=== PATIENT | female | born 1995 | race Caucasian/White ===

== ENCOUNTER 2017-11-08 14:04 | Outpatient (CLI) | payer OTHER ==
[2017-11-08] MEDS: LACTATED RINGER'S 1,000 ML IV (17:45)
== END 2017-11-08 21:50 | disposition home or self-care (01) ==
LOC: OBT 14:04 → L-D 14:04 → OBT 21:50
DX: O41.03X0 Oligohydramnios, third trimester, not applicable or unspecified (principal); Z3A.35 35 weeks gestation of pregnancy
CPT/HCPCS: 76818

== ENCOUNTER 2017-11-11 09:59 | Outpatient (CLI) | payer OTHER | END 2017-11-11 12:03 | disposition home or self-care (01) | LOC: OBT 09:59 → L-D 09:59 → OBT 12:03 | DX: O41.93X0 Disorder of amniotic fluid and membranes, unspecified, third trimester, not applicable or unspecified (principal); Z3A.36 36 weeks gestation of pregnancy | CPT/HCPCS: 76818 ==

== ENCOUNTER 2017-11-14 12:50 | Outpatient (CLI) | payer OTHER | END 2017-11-14 18:10 | disposition home or self-care (01) | LOC: OBT 12:50 → L-D 12:50 → OBT 18:10 | DX: O36.8330 Maternal care for abnormalities of the fetal heart rate or rhythm, third trimester, not applicable or unspecified (principal); Z3A.36 36 weeks gestation of pregnancy | CPT/HCPCS: 76818 ==

== ENCOUNTER 2017-11-18 17:57 | Outpatient (CLI) | payer OTHER ==
[2017-11-18] MEDS ORDERED: LACTATED RINGER'S 500 ML IV (19:43)
[2017-11-18] MEDS: LACTATED RINGER'S 1,000 ML IV (20:14)
[2017-11-18 20:45] LABS: ADD UMIC YES; UR ASCORBIC ACID NEGATIVE (NEGATIVE); UR BACTERIA FEW /HPF (NONE SEEN); UR BILIRUBIN (Dip) NEGATIVE (NEGATIVE); UR BLOOD (Dip) 3+ mg/dL (NEGATIVE); UR CLARITY CLOUDY (CLEAR); UR COLOR YELLOW (YELLOW); UR GLUCOSE (Dip) NEGATIVE (NEGATIVE); UR KETONES (Dip) NEGATIVE (NEGATIVE); UR LEUKOCYTE ESTERASE (Dip) TRACE Leu/ul (NEGATIVE); UR MUCUS FEW /HPF (NONE SEEN); UR NITRITE (Dip) NEGATIVE (NEGATIVE); UR RBC 1 /HPF (0-5); UR SPECIFIC GRAVITY (Dip) 1.005 (1.003-1.030); UR SQUAMOUS EPITHELIAL CELL MODERATE /HPF (FEW); UR TOTAL PROTEIN (Dip) NEGATIVE (NEGATIVE); UR UROBILINOGEN (Dip) NEGATIVE (NEGATIVE); UR WBC 3 /HPF (0-5)
== END 2017-11-18 23:11 | disposition home or self-care (01) ==
LOC: OBT 17:57 → L-D 17:59 → OBT 23:11
DX: O26.853 Spotting complicating pregnancy, third trimester (principal); O47.1 False labor at or after 37 completed weeks of gestation; Z3A.37 37 weeks gestation of pregnancy
CPT/HCPCS: 76815; 76818; 81001; 87086

== ENCOUNTER 2017-12-02 04:55 | Inpatient (IN) | payer OTHER ==
[2017-12-02] MEDS ORDERED: MISOPROSTOL 200 MCG TAB PR ×2 (05:30→13:30)
[2017-12-02] MEDS ORDERED: CARBOPROST 250 MCG INJ IM ×2 (05:30→13:30)
[2017-12-02] MEDS ORDERED: OXYTOCIN 30 UNITS/LR 500 ML IV ×3 (05:30→13:30)
[2017-12-02] MEDS ORDERED: METHYLERGONOVINE 0.2 MG INJ IM ×2 (05:30→13:30)
[2017-12-02] MEDS ORDERED: CEFAZOLIN 2 GM/50 ML (PMX) 50 ML IV (05:30)
[2017-12-02] MEDS: LACTATED RINGER'S 1,000 ML IV ×2 (05:39→07:55)
[2017-12-02 05:51] LABS: ADD MAN DIFF? NO
[2017-12-02 05:58] LABS: BASOPHILS % 0.4 % (0.0-2.0); EOSINOPHILS # 0.1 10^3/ul (0.0-0.5); EOSINOPHILS % 0.9 % (0.0-7.0); HEMATOCRIT 36.9 % (37.0-47.0); HEMOGLOBIN 12.7 g/dl (12.0-16.0); LYMPHOCYTES # 3.2 10^3/ul (0.8-2.9); LYMPHOCYTES % 30.2 % (15.0-51.0); MEAN CORPUSCULAR HEMOGLOBIN 31.1 pg (29.0-33.0); MEAN CORPUSCULAR HGB CONC 34.4 g/dl (32.0-37.0); MEAN CORPUSCULAR VOLUME 90.4 fl (82.0-101.0); MEAN PLATELET VOLUME 11.6 fl (7.4-10.4); MONOCYTE # 0.7 10^3/ul (0.3-0.9); MONOCYTES % 6.5 % (0.0-11.0); NEUTROPHIL # 6.6 10^3/ul (1.6-7.5); NEUTROPHILS % 61.4 % (39.0-77.0); PLATELET COUNT 197 10^3/UL (140-415); RED BLOOD COUNT 4.08 10^6/ul (4.20-5.40); RED CELL DISTRIBUTION WIDTH 12.6 % (11.5-14.5)
[2017-12-02 05:58] LABS: WHITE BLOOD COUNT 10.7 10^3/ul (4.8-10.8)
[2017-12-02 06:14] LABS: INR 0.87; PROTIME 11.9 Sec (11.9-14.9); PT RATIO 0.9
[2017-12-02 06:15] LABS: PARTIAL THROMBOPLASTIN TIME 29.1 Sec (25.0-35.0)
[2017-12-02 06:58] LABS: HEPATITIS B SURFACE ANTIGEN NEGATIVE (NEGATIVE)
[2017-12-02 08:42] LABS: ALANINE AMINOTRANSFERASE 24 IU/L (13-69); ALBUMIN 3.4 g/dl (3.3-4.9); ALKALINE PHOSPHATASE 201 IU/L (42-121); ANION GAP 11 (8-16); ASPARTATE AMINO TRANSFERASE 24 IU/L (15-46); BILIRUBIN,INDIRECT 0.1 mg/dl (0-1.1); BILIRUBIN,TOTAL 0.1 mg/dl (0.2-1.3); BLOOD UREA NITROGEN 9 mg/dl (7-20); CALCIUM 8.9 mg/dl (8.4-10.2); CARBON DIOXIDE 23 mmol/L (21-31); CHLORIDE 108 mmol/L (97-110); CREATININE 0.48 mg/dl (0.44-1.00); GLUCOSE 84 mg/dl (70-220); POTASSIUM 3.9 mmol/L (3.5-5.1); SODIUM 138 mmol/L (135-144); TOTAL PROTEIN 6.8 g/dl (6.1-8.1); URIC ACID 4.5 mg/dl (3.1-7.9)
[2017-12-02] MEDS: CITRIC ACID/SODIUM CITRATE 15 ML CUP PO (08:42)
[2017-12-02] MEDS: FAMOTIDINE 20 MG INJ IV (08:42)
[2017-12-02] MEDS: METOCLOPRAMIDE 10 MG INJ IV (08:43)
[2017-12-02] MEDS ORDERED: morphine SULFATE/PF (10 MG/10 ML) INJ (09:02)
[2017-12-02] MEDS ORDERED: FENTAnyl 50 MCG/ML VIAL (09:02)
[2017-12-02] MEDS ORDERED: PHENYLephrine (100 MCG/ML) 5ML SYG (09:37)
[2017-12-02] MEDS ORDERED: ONDANSETRON 4 MG INJ (09:43)
[2017-12-02] MEDS ORDERED: PROCHLORPERAZINE 10 MG INJ IV (11:00)
[2017-12-02] MEDS ORDERED: NALOXONE (0.4 MG/ML) INJ IV (11:00)
[2017-12-02] MEDS ORDERED: FENTAnyl 50 MCG/ML VIAL IV (11:00)
[2017-12-02] MEDS ORDERED: KETOROLAC 30 MG INJ IV (11:00)
[2017-12-02] MEDS ORDERED: HYDROmorphONE (0.2 MG/ML) 10ML SYG IV (11:00)
[2017-12-02] MEDS ORDERED: ONDANSETRON 4 MG INJ IV ×2 (11:00)
[2017-12-02] MEDS ORDERED: HYDROmorphONE 0.5 MG/0.5 ML SYG IV ×2 (11:00)
[2017-12-02] MEDS ORDERED: MEPERIDINE 25 MG INJ IV (11:00)
[2017-12-02] MEDS ORDERED: ZOLPIDEM 5 MG TAB PO (11:00)
[2017-12-02] MEDS ORDERED: DIPHENHYDRAMINE 50 MG INJ IV (11:00)
[2017-12-02] MEDS: OXYTOCIN 30 UNITS/LR 500 ML IV ×3 (11:21→17:57)
[2017-12-02] MEDS: DIPHENHYDRAMINE 50 MG INJ IV (12:52)
[2017-12-02] MEDS ORDERED: CEFAZOLIN 1 GM/50 ML (PMX) 50 ML IVPB ×2 (13:30→18:00)
[2017-12-02] MEDS ORDERED: HYDROCODONE/APAP (5/325) TAB PO ×2 (13:30)
[2017-12-02] MEDS ORDERED: OXYCODONE/ACETAMINOPHEN (5/325) TAB PO (13:30)
[2017-12-02] MEDS: KETOROLAC 30 MG INJ IV ×2 (14:01→20:39)
[2017-12-02] MEDS: CEFAZOLIN 1 GM/50 ML (PMX) 50 ML IVPB (17:57)
[2017-12-02] MEDS: SENNA/DOCUSATE NA (8.6MG/50MG) TAB PO (20:57)
[2017-12-02 21:53] LABS: RAPID PLASMA REAGIN NONREACTIVE (NR)
[2017-12-02] MEDS: LANOLIN 7 GM TUBE TOP (23:58)
[2017-12-03] MEDS: LACTATED RINGER'S 1,000 ML IV (00:45)
[2017-12-03] MEDS: KETOROLAC 30 MG INJ IV (06:03)
[2017-12-03 08:58] LABS: ADD MAN DIFF? NO
[2017-12-03 09:04] LABS: WHITE BLOOD COUNT 11.3 10^3/ul (4.8-10.8)
[2017-12-03 09:04] LABS: BASOPHILS % 0.4 % (0.0-2.0); EOSINOPHILS # 0.1 10^3/ul (0.0-0.5); EOSINOPHILS % 0.8 % (0.0-7.0); HEMATOCRIT 34.1 % (37.0-47.0); HEMOGLOBIN 11.8 g/dl (12.0-16.0); LYMPHOCYTES # 2.5 10^3/ul (0.8-2.9); LYMPHOCYTES % 22.5 % (15.0-51.0); MEAN CORPUSCULAR HEMOGLOBIN 31.6 pg (29.0-33.0); MEAN CORPUSCULAR HGB CONC 34.6 g/dl (32.0-37.0); MEAN CORPUSCULAR VOLUME 91.2 fl (82.0-101.0); MEAN PLATELET VOLUME 11.6 fl (7.4-10.4); MONOCYTE # 0.6 10^3/ul (0.3-0.9); MONOCYTES % 5.3 % (0.0-11.0); NEUTROPHILS % 70.6 % (39.0-77.0); PLATELET COUNT 183 10^3/UL (140-415); RED BLOOD COUNT 3.74 10^6/ul (4.20-5.40); RED CELL DISTRIBUTION WIDTH 12.9 % (11.5-14.5)
[2017-12-03] MEDS: SENNA/DOCUSATE NA (8.6MG/50MG) TAB PO ×2 (10:03→20:54)
[2017-12-03] MEDS: IBUPROFEN 600 MG TAB PO ×3 (11:50→23:36)
[2017-12-03] MEDS: OXYCODONE/ACETAMINOPHEN (5/325) TAB PO ×2 (13:35→17:24)
[2017-12-04] MEDS: IBUPROFEN 600 MG TAB PO ×3 (05:52→17:35)
[2017-12-04] MEDS: SENNA/DOCUSATE NA (8.6MG/50MG) TAB PO ×2 (09:25→20:58)
[2017-12-05] MEDS: IBUPROFEN 600 MG TAB PO ×3 (00:31→12:27)
[2017-12-05] MEDS: DIPHTH/TET/ACEL PERTUSS (ADULT) 0.5 ML VIAL IM* (09:00)
[2017-12-05] MEDS: SENNA/DOCUSATE NA (8.6MG/50MG) TAB PO (09:51)
== END 2017-12-05 16:45 | disposition home or self-care (01) | DRG 766 ==
LOC: L-D 04:55 → PP1 13:31
PROVIDERS: Obstetrics & Gynecology
PROC: 10D00Z1 Extraction of Products of Conception, Low, Open Approach (ICD-10-PCS; principal; 2017-12-02 07:30)
PROC: 3E033VJ Introduction of Other Hormone into Peripheral Vein, Percutaneous Approach (ICD-10-PCS; 2017-12-02 07:30)
DX: O34.211 Maternal care for low transverse scar from previous cesarean delivery (principal); E66.01 Morbid (severe) obesity due to excess calories; O99.214 Obesity complicating childbirth; Z68.39 Body mass index [BMI] 39.0-39.9, adult; Z3A.39 39 weeks gestation of pregnancy; Z37.0 Single live birth
CPT/HCPCS: 80053; 84560; 85025; 85384; 85610; 85730; 86592; 86850; 86900; 86901; 87340; 94760; 99464